=== PATIENT | male | born 1950 | race Caucasian/White ===

== ENCOUNTER → 2022-07-02 | Outpatient (CLI) | payer OTHER ==
[~2022-07-02] MED LIST: AMIT50TA4 PO; CHOL25TA4 PO; CloNIDine HCL 0.1 MG TABLET PO ONE; DOCU-385 PO; SERT-162 PO; TRIA16.911 NASAL; XALA2.5OS OU
[2022-07-02 14:36] VITALS: BP 212/107
== END | disposition home or self-care (01) ==
LOC: SRCNTR 13:44 → EDSTATUS 14:45
PROVIDERS: ATTEND Internal Medicine
DX: R00.2 Palpitations (principal); I10 Essential (primary) hypertension; I45.10 Unspecified right bundle-branch block; R94.31 Abnormal electrocardiogram [ECG] [EKG]; E11.9 Type 2 diabetes mellitus without complications; M19.90 Unspecified osteoarthritis, unspecified site
CPT/HCPCS: G0463

== ENCOUNTER → 2022-09-04 | Outpatient (CLI) | payer OTHER ==
[~2022-09-04] MED LIST changes: -CloNIDine HCL 0.1 MG TABLET PO ONE
== END | disposition home or self-care (01) ==
LOC: RADPV 09:32
PROVIDERS: ATTEND Internal Medicine
DX: I08.1 Rheumatic disorders of both mitral and tricuspid valves (principal); I49.3 Ventricular premature depolarization; I45.10 Unspecified right bundle-branch block; R00.2 Palpitations
CPT/HCPCS: 93306

== ENCOUNTER → 2022-11-06 | Outpatient (CLI) | payer OTHER ==
[~2022-11-06] MED LIST changes: +METO25 PO
[2022-11-06 15:11] VITALS: BP 140/68
== END | disposition home or self-care (01) ==
LOC: SRCNTR 15:09
PROVIDERS: ATTEND Internal Medicine
DX: I45.10 Unspecified right bundle-branch block (principal); R94.31 Abnormal electrocardiogram [ECG] [EKG]; Z09 Encounter for follow-up examination after completed treatment for conditions other than malignant neoplasm; R00.2 Palpitations; E11.9 Type 2 diabetes mellitus without complications; M19.90 Unspecified osteoarthritis, unspecified site
CPT/HCPCS: G0463; Z7500

== ENCOUNTER → 2023-03-25 | Outpatient (CLI) | payer OTHER ==
[2023-03-25 15:22] VITALS: BP 158/83; PULSE 71; RESP 14; TEMP 98.8; O2SAT 97
== END | disposition home or self-care (01) ==
LOC: SRCNTR 15:09
PROVIDERS: ATTEND Internal Medicine
DX: R00.2 Palpitations (principal); R94.31 Abnormal electrocardiogram [ECG] [EKG]; I10 Essential (primary) hypertension; Z79.899 Other long term (current) drug therapy; Z88.2 Allergy status to sulfonamides; Z88.8 Allergy status to other drugs, medicaments and biological substances
CPT/HCPCS: G0463; Z7500